=== PATIENT | male | born 1950 | race Caucasian/White ===

== ENCOUNTER 2024-11-04 12:03 | Inpatient (IN) | payer MEDICARE, OTHER, SELFPAY ==
[2024-11-04] VITALS (15 sets, daily range): BP systolic 101–123; BP diastolic 60–83; PULSE 86–140; RESP 16–24; TEMP 36.4–36.8; O2SAT 90–97; BMI 30.7
--- NOTE | ~2024-11-04 | XR_ITS ---
XR chest 2V Ordering provider: Josh Cook MD History: 74 years Male with . sob, cough . Comparison: May 27, 2016 FINDINGS: MEDIASTINUM: The cardiac silhouette is not enlarged. LUNGS: No infiltrates, effusions or pneumothorax. Calcified granuloma in the right lower lobe. Underlying emphysematous/fibrotic changes. OTHER: No free air under the diaphragm. Degenerative changes of the spine. IMPRESSION: No acute cardiopulmonary pathology. Reviewed, dictated and finalized at location [facility]
--- NOTE | ~2024-11-04 | CT_ITS ---
CTA chest PE protocol Ordering provider: Bubba Krueger MD History: 74 years Male with . sob . Comparison: None. Technique: CT angiogram chest was performed following timed intravenous injection of contrast. Thin s lice axial images and reformatted coronal images were obtained. Three dimensional reformatted images of the chest were also obtained using a [employer] workstation. . Automated exposure control and iterati ve reconstruction technique were employed. The dose-length product was 839.66 mGy-cm. 200 mL Omnipaqu e 350 was given IV. Findings: PULMONARY ARTERIES: No pulmonary embolus. VISUALIZED THORACIC INLET: Normal. MEDIASTINUM: Aorta/coronary arteries: Mild atheromatous disease. Heart/other: The heart is not enlarged. Lymph nodes: No mediastinal or hilar adenopathy. LUNGS: No pulmonary nodules or masses. No infiltrates or effusions. No pneumothorax. Granuloma in the right middle lobe. bronchiectatic changes are seen in the lung bases. Dependent Atelectatic changes in the lung bases. VISUALIZED UPPER ABDOMEN: Hypodensity in the liver most likely a cyst measuring 2 cm. Cholelithiasis. Bilateral renal cysts with the largest measures 8.5 cm in the right kidney. Left adrenal adenoma anel suring1.7 cm.Dynamic study or MRI is advised.Sliding hiatus hernia.Otherwise, the visualized upper ab domen is normal. MUSCULOSKELETAL: Soft tissues: The superficial soft tissues are normal. Bones: Age appropriate degenerative changes of the spine. IMPRESSION: 1. No pulmonary embolism 2. Cholelithiasis. 3. Bronchiectatic changes in the lung bases with dependent atelectatic changes. 4. Bilateral renal cysts. 5. Small cyst in the liver. 6. Left adrenal adenoma. Clinical correlation and if warranted dynamic rib or MRI is advised. Reviewed, dictated and finalized at location A. [employer] IMPRESSION: 1. No pulmonary embolism 2. Cholelithiasis. 3. Bronchiectatic changes in the lung bases with dependent atelectatic changes . 4. Bilateral renal cysts. 5. Small cyst in the liver. 6. Left adrenal adenoma. Clinical correlation and if warranted dynamic rib or MRI is advised.
--- NOTE | 2024-11-04 12:05 | ECG_ITS ---
Test Date: 2024-11-04 12:10:25 Measurements Intervals Brice Rate: 136 P: 67 NE: 132 QRS: 78 QRSD: 121 T: 42 QT: 311 QTc: 469 Interpretive Statements SINUS TACHYCARDIA RIGHT BUNDLE BRANCH BLOCK [120+ ms QRS DURATION, UPRIGHT V1, 40+ ms S IN I/aVL/V4/V5/V6] No previous ECG available for comparison Electronically Signed On 11-04-2024 14:35:39 ENGRAVING PATTERNMAKER by Sharmin Guerrero M.D.
[2024-11-04 12:23] LABS: Basophils Percent Auto 0.3 % (0.2-1.2); Eosinophils Absolute Auto 0.2 K/mm3 (0-0.3); Eosinophils Percent Auto 1.7 % (0-4.4); Hematocrit 46.2 % (42.0-52.0); Hemoglobin 15.2 g/dL (14.0-18.0); Immature Granulocyte Absolute 0.02 K/mm3 (0.00-0.031); Immature Granulocyte Percent A 0.2 % (0-0.5); Lymphocytes Absolute Auto 1.62 K/mm3 (0.9-3.2); Lymphocytes Percent Auto 14.9 % (18.3-44.2); Mean Corpuscular HGB Conc 32.9 g/dl (32-36); Mean Corpuscular Hemoglobin 30.2 pg (26-34); Mean Corpuscular Volume 91.8 fl (80-100); Mean Platelet Volume 8.6 fl (7.4-10.4); Monocytes Absolute Auto 0.9 K/mm3 (0.1-0.6); Monocytes Percent Auto 8.1 % (2.6-8.5); Neutrophils Absolute Auto 8.1 K/mm3 (1.3-6.7); Neutrophils Percent Auto 74.8 % (45.5-73.1); Platelet Count Result 240 k/mm3 (150-375); Red Blood Count 5.03 M/mm3 (4.6-6.20); Red Cell Distribution Width 12.7 % (11.5-14.5); White Blood Count 10.9 K/mm3 (4.5-10.0)
[2024-11-04 12:38] LABS: Alanine Aminotransferase 35 U/L (6-50); Albumin Level 3.9 g/dL (3.5-5.1); Alkaline Phosphatase 48 U/L (38-126); Anion Gap 9 mmol/L (4-12); Aspartate Amino Transferase 28 U/L (17-59); Blood Urea Nitrogen 15 mg/dL (9-20); Calcium 9.5 mg/dL (8.4-10.2); Carbon Dioxide 25 mmol/L (22-30); Chloride 108 mmol/L (98-107); Estimated CRCL calculation 60 ml/min; Estimated Glomerular Filt Rate > 60; Glucose 111 mg/dL (65-110); Potassium 3.9 mmol/L (3.4-5.0); Sodium 142 mmol/L (137-145)
[2024-11-04] MEDS: ALBUTEROL SULFATE NEB 2.5 MG/3 ML INH 5 MG INHALATION (13:17)
[2024-11-04] MEDS: IPRATROPIUM BR 0.02% INH SOLN 0.5 MG/2.5 ML VIAL INHALATION ×2 (13:18→20:35)
[2024-11-04] MEDS: methylPREDNISolone SOD SUCC 125 MG VIAL IV PUSH (13:20)
[2024-11-04] MEDS: ACETAMINOPHEN 325 MG TABLET 650 MG PO (13:56)
--- NOTE | 2024-11-04 15:07 | ED.SOB ---
HPI - SOB/Dyspnea General Chief Complaint: Shortness of Breath/Dyspnea Stated Complaint: FLU positive, sob Time Seen by Provider: 11/04/24 12:53 Source: patient Mode of arrival: EMS Limitations: no limitations History of Present Illness HPI Narrative: 74-year-old with a history of COPD not on home oxygen presents to the ER via ambulance with the complaints of shortness of breath which is been ongoing for past 1 week. Patient states that even with minimal ambulation he gets extremely short winded. He denies any chest pain. No previous history of CAD or CHF. He states that he follows at the [facility]. And he has unable to go to [facility] he has not seen a school psychology specialist in the recent past. He has occasional cough which is nonproductive. He was recently diagnosed with influenza. His SpO2 on room air is 88% MD elicited complaint: shortness of breath and cough Pertinent past history: COPD Context: recent illness Timing: constant Severity: moderate Exacerbating factors: exertion Relieving factors: oxygen Known history of: COPD Associated symptoms: denies other symptoms Related Data Home oxygen amount: none Allergies Allergy/AdvReac Type Severity Reaction Status Date / Time No Known Allergies Allergy Unverified 05/27/16 12:43 Review of Systems Review of Systems: All systems reviewed & are unremarkable except as noted in HPI and below Constitutional: Constitutional: Reports no additional constitutional complaints Eyes: Eyes: Reports no additional eye complaints ENT: Reports system reviewed and no additional complaints, except as documented Cardiovascular: Cardiovascular: Reports no additional cardiovascular complaints Respiratory: Respiratory: Reports as per HPI Gastrointestinal: Gastrointestinal: Reports no additional gastrointestinal complaints Musculoskeletal: Musculoskeletal: Reports no additional musculoskeletal complaints PMFSH Past Medical History Medical History COPD (chronic obstructive pulmonary disease) Exam Narrative: GENERAL: Well-appearing, well-nourished, and in no acute distress. HEAD: Normocephalic, atraumatic. EYES: PERRLA and EOMI. ENT: Nares clear, no rhinorrhea or epistaxis. Mucous membranes moist. NECK: Supple. CHEST: Decreased air entry and mild wheeze HEART: Regular rate and rhythm. No murmur heard. Normal peripheral pulses. ABDOMEN: Soft, nontender, nondistended, normal active bowel sounds. EXTREMITIES: Normal range of motion. No edema. SKIN: Warm, dry, no rash. NEURO: No focal deficits. Alert and oriented x3. PSYCH: Normal mood and affect. Course Course Emergency Course: Patient comfortably sitting on the bed in no discomfort his SpO2 on room air was 88% with 2 L it is up to 94%. Did inform him about his lab work, chest x-ray findings with with admission. Discussed with the hospitalist accepted the patient Patient has been tachycardic since he has arrived. The cause of his tachycardia is and on however I did CT a of the chest which did not show evidence of PE I did give 10 mg of diltiazem which brought his heart rate down from 146-125. Will admit him to a tele bed Vital Signs Vital signs: Vital Signs Temperature 36.4 C 11/04/24 12:04 Pulse Rate 140 H 11/04/24 12:04 Respiratory Rate 20 11/04/24 12:04 Blood Pressure 115/70 11/04/24 12:04 Pulse Oximetry 90 11/04/24 12:04 Oxygen Delivery Room Air 11/04/24 12:04 Temperature 36.8 C 11/04/24 13:02 Pulse Rate 129 H 11/04/24 16:56 Respiratory Rate 19 11/04/24 16:56 Blood Pressure 109/60 11/04/24 16:56 Pulse Oximetry 93 11/04/24 16:56 Oxygen Delivery Nasal Cannula 11/04/24 12:56 Oxygen Flow Rate 1 11/04/24 12:56 MDM - SOB/Dyspnea Differential Diagnosis Differential diagnosis: Likely acute exacerbation of chronic obstructive airways disease and community acquired pneumonia Medical Records Attestation: I reviewed the patient's medical records. Lab Data Attestation: I reviewed the patient's lab results. 11/04/24 12:14 11/04/24 12:14 Labs: Lab Results 11/04/24 11/04/24 Range/Units 12:14 16:59 WBC 10.9 H (4.5-10.0) K/mm3 RBC 5.03 (4.6-6.20) M/mm3 Hgb 15.2 (14.0-18.0) g/dL Hct 46.2 (42.0-52.0) % MCV 91.8 (80-100) fl MCH 30.2 (26-34) pg MCHC 32.9 (32-36) g/dl RDW 12.7 (11.5-14.5) % Plt Count 240 (150-375) k/mm3 MPV 8.6 (7.4-10.4) fl Immature Gran % (Auto) 0.2 (0-0.5) % Neut % (Auto) 74.8 H (45.5-73.1) % Lymph % (Auto) 14.9 L (18.3-44.2) % [place] % (Auto) 8.1 (2.6-8.5) % Eos % (Auto) 1.7 (0-4.4) % Baso % (Auto) 0.3 (0.2-1.2) % Lymph # (Auto) 1.62 (0.9-3.2) K/mm3 [place] # (Auto) 0.9 H (0.1-0.6) K/mm3 Eos # (Auto) 0.2 (0-0.3) K/mm3 Baso # (Auto) 0.0 (0.0-0.1) K/mm3 Abs Immat Gran (auto) 0.02 (0.00-0.031) K/mm3 Absolute Neuts (auto) 8.1 H (1.3-6.7) K/mm3 Absolute Nucleated RBC 0.000 (0.0-0.012) K/mm3 Nucleated RBC % 0.0 (0.0-0.2) % Sodium 142 (137-145) mmol/L Potassium 3.9 (3.4-5.0) mmol/L Chloride 108 H (98-107) mmol/L Carbon Dioxide 25 (22-30) mmol/L Anion Gap 9 (4-12) mmol/L BUN 15 (9-20) mg/dL Creatinine 0.89 (0.7-1.3) mg/dL Estim Creat Clear Calc 60 ml/min Estimated GFR > 60 (59 - ) Glucose 111 H (65-110) mg/dL Lactic Acid 1.8 (0.7-2.0) mmol/L Calcium 9.5 (8.4-10.2) mg/dL Total Bilirubin 1.0 (0.2-1.3) mg/dL AST 28 (17-59) U/L ALT 35 (6-50) U/L Alkaline Phosphatase 48 (38-126) U/L Total Protein 7.0 (6.3-8.2) g/dL Albumin 3.9 (3.5-5.1) g/dL Imaging Data Radiologist's impression: ITS Impressions Chest X-Ray 11/04/24 12:30 IMPRESSION: No acute cardiopulmonary pathology. Chest CTA 11/04/24 16:12 IMPRESSION: 1. No pulmonary embolism 2. Cholelithiasis. 3. Bronchiectatic changes in the lung bases with dependent atelectatic changes. 4. Bilateral renal cysts. 5. Small cyst in the liver. 6. Left adrenal adenoma. Clinical correlation and if warranted dynamic rib or MRI is advised. ITS Impressions Chest X-Ray 11/04/24 12:30 IMPRESSION: No acute cardiopulmonary pathology. ECG Data EKG #1: ECG completion date: 11/04/24 ECG completion time: 12:10 EKG Interpretation: tachycardia (136), no ST changes, RBBB, NL axis and no acute changes Discharge Plan Discharge Clinical Impression: COPD exacerbation, Hypoxemia, Sinus tachycardia Patient Disposition: Still a Patient Condition: Stable Patient Language: Kinyarwanda Follow-up/Referrals: PHYSICIAN NOT ON STAFF,NONSTAFF [Primary Care Provider] - Time of Disposition: 15:08
[2024-11-04] MEDS: LACTATED RINGERS 1,000 ML 999 ML IV CONT ×3 (15:10→17:02)
--- NOTE | 2024-11-04 16:01 | PC.NURSE ---
Pt to CT scan via stretcher at this time.
--- NOTE | 2024-11-04 16:50 | PM.IMHP ---
H&P: HPI History of Present Illness Date/Time: 11/04/24 16:50 Chief Complaint: Shortness of Breath Narrative: 74 y/o M presents here with shortness of breath with PMH of COPD. The patient presents here with shortness of breath from home via EMS. The patient reports acute onset of shortness of breath approximately 1 week ago. He was diagnosed with influenza on 10/27/2024. Reports he has been short of breath since this diagnosis. Patient also has a history of COPD. He has a chronic cough at baseline that is productive. He reports no other associated symptoms. Denies fever, chills, body aches, palpitations or chest pain. Initial VS at presentation: 97.6? F, HR 140, RR 20, 115/70, and 90% on RA. ED workup showed: WBC 10.9, no anemia, no significant electrolyte derangements, creatinine 0.89 and GFR >60. CXR showed no acute cardiopulmonary pathology. Chest CTA showed no PE, cholelithiasis, bronchiectatic changes in the lung bases, bilateral renal cysts, small cyst in the liver, and a left adrenal adenoma. Review of Systems Review of Systems: All systems reviewed & are unremarkable except as noted in HPI and below PMFSH Past Medical History Medical History (Updated 11/04/24 @ 22:51 by Gabi Faulkner APRN) Neuropathy HTN (hypertension) COPD (chronic obstructive pulmonary disease) Meds Home Medications and Allergies Home Medications ?Medication ?Instructions ?Recorded ?Confirmed ?Type amlodipine 5 mg tablet 5 mg PO DAILY 11/04/24 11/04/24 History gabapentin 800 mg tablet 800 mg PO HS 11/04/24 11/04/24 History melatonin 5 mg capsule 5 mg PO HS 11/04/24 11/04/24 History omeprazole 40 mg capsule,delayed 40 mg PO DAILY 11/04/24 11/04/24 History release Allergies Allergy/AdvReac Type Severity Reaction Status Date / Time No Known Allergies Allergy Unverified 05/27/16 12:43 Vital Signs Vital Signs - 24 hr 11/04/24 12:04 11/04/24 12:54 11/04/24 12:56 Temperature 97.6 F Pulse Rate 140 H Respiratory Rate 20 Blood Pressure 115/70 Pulse Oximetry 90 90 Oxygen Delivery Room Air Nasal Cannula Nasal Cannula Oxygen Flow Rate 1 1 11/04/24 13:02 11/04/24 13:18 11/04/24 13:28 Temperature 98.3 F Pulse Rate 86 124 H 132 H Respiratory Rate 16 18 18 Blood Pressure 101/83 Pulse Oximetry 96 Oxygen Delivery Oxygen Flow Rate 11/04/24 15:10 Temperature Pulse Rate 138 H Respiratory Rate 18 Blood Pressure 113/65 Pulse Oximetry 94 Oxygen Delivery Oxygen Flow Rate Exam Const: General: comfortable and no acute distress Other: , male, elderly, nontoxic appearance HENMT: Face/Nose/Sinus: Normal nares present Mouth: Yes moist mucous membranes Eyes: General: appearance normal, both eyes and all related structures Sclera: sclerae normal Pupils: Equal, round and reactive pupils present EOM: EOMs intact bilaterally Resp: Other: Bibasilar crackles. Diminished in upper lobes. Mild conversational dyspnea. Supplemental O2 place. Cardio: Rate: tachycardic Rhythm: regular rhythm Other: S1-S2 present without murmur, rub, ectopy Skin: General skin exam: normal color and no rashes or lesions noted Wounds: no wounds Neuro: Speech: normal speech Motor exam (neuro): 5/5 motor strength present throughout Sensory Exam: normal sensation Other: A&O x4 Extrem: General: normal to inspection Psych: Mental Status: mental status grossly normal Affect: normal affect Other: Good insight and judgment, pleasant H&P: Results Labs Labs: Short CBC 11/04/24 Range/Units 12:14 WBC 10.9 H (4.5-10.0) K/mm3 Hgb 15.2 (14.0-18.0) g/dL Hct 46.2 (42.0-52.0) % Plt Count 240 (150-375) k/mm3 BMP 11/04/24 12:14 Sodium 142 Potassium 3.9 Chloride 108 H Carbon Dioxide 25 BUN 15 Creatinine 0.89 Glucose 111 H Calcium 9.5 Liver Function 11/04/24 Range/Units 12:14 Total Bilirubin 1.0 (0.2-1.3) mg/dL AST 28 (17-59) U/L ALT 35 (6-50) U/L Alkaline Phosphatase 48 (38-126) U/L Albumin 3.9 (3.5-5.1) g/dL Assessment and Plan Assessment and plan (1) Sepsis: Qualifiers: Acute respiratory failure type: with hypoxia Sepsis acute organ dysfunction status: with acute organ dysfunction Sepsis type: sepsis due to unspecified organism Severe sepsis acute organ dysfunction type: acute respiratory failure Severe sepsis shock status: without septic shock Qualified Code(s): A41.9 - Sepsis, unspecified organism; R65.20 - Severe sepsis without septic shock; J96.01 - Acute respiratory failure with hypoxia Code(s): A41.9 - Sepsis, unspecified organism Status: Acute Assessment and Plan: - meets SIRS criteria: HR, RR - lactic acid 1.8 - 30 mL/kg = 2580, bolus ordered - suspected source: Influenza/respiratory - started on ceftriaxone and azithromycin - blood cultures drawn on 11/04 - UA added (2) COPD exacerbation: Code(s): J44.1 - Chronic obstructive pulmonary disease with (acute) exacerbation Status: Acute Assessment and Plan: - CXR: No acute cardiopulmonary pathology. - chest CTA: 1. No pulmonary embolism 2. Cholelithiasis. 3. Bronchiectatic changes in the lung bases with dependent atelectatic changes. 4. Bilateral renal cysts. 5. Small cyst in the liver. 6. Left adrenal adenoma. Clinical correlation and if warranted dynamic rib or MRI is advised. - supportive care: Mucinex p.r.n. Tessalon Perles p.r.n. Antipyretic p.r.n. - scheduled nebs - Levalbuterol/Atrovent - prednisone 40 mg p.o. daily x5 days - started on ceftriaxone and azithromycin on 11/04 - currently requiring supplemental O2 - 1-2L NC, no previous requirement Plan Patient remains significantly tachycardic, he reports his heart rate is normally high. Takes metoprolol once daily in the morning, clear on dose. Will give 1 time dose of 5 mg IVP of metoprolol for heart rate, currently 126. Diet: Heart healthy GI Prophylaxis: Not currently indicated DVT Prophylaxis: SCDs Lines: Peripheral Code Status: Full code Quality VTE Prophylaxis VTE prophylaxis: mechanical ordered Hospitalist MIPS Advance Care Plan I have confirmed that the patient's Advanced Care Plan is present, code status is documented, or surrogate decision maker is listed in patient medical record.: Yes Medication Reconciliation I have utilized all available resources to obtain, update and review the patients current medications (includes all prescriptions, OTC, herbals, cannabis, and nutritional supplements).: Yes
[2024-11-04] MEDS: dilTIAZem HCl INJ 25 MG/5 ML VIAL 10 MG IV PUSH (16:53)
[2024-11-04 17:23] LABS: Lactic Acid Reflex 1.8 mmol/L (0.7-2.0)
--- NOTE | 2024-11-04 17:23 | PC.NURSE ---
gave pt snack before dinner
[2024-11-04] MEDS: guaiFENesin 12 HR 600 MG TABCR PO (17:30)
[2024-11-04] MEDS: AZITHROMYCIN 500 MG/NS 250 ML 500 MG/250 ML BAG 250 MG IVPB (18:11)
[2024-11-04] MEDS: DOXYCYCLINE 100 MG/NS 100 ML 100 MG/100 ML BAG IVPB (18:45)
[2024-11-04] MEDS: LACTATED RINGERS 600 ML 999 ML IV CONT (19:08)
[2024-11-04] MEDS: LEVALBUTEROL NEB 1.25 MG/3 ML 0.63 MG INHALATION (20:35)
[2024-11-04] MEDS: methylPREDNISolone SOD SUCC 125 MG VIAL 60 MG IV PUSH (21:11)
[2024-11-04] MEDS: SODIUM CHLORIDE 0.9% IV 500 ML 999 ML IV CONT (21:11)
[2024-11-04] MEDS: SODIUM CHLORIDE 0.9% IV 1,000 ML 125 ML IV CONT (22:20)
[2024-11-04] MEDS: METOPROLOL TARTRATE INJ 5 MG/5 ML VIAL IV PUSH (22:52)
--- NOTE | 2024-11-04 23:12 | ADMGEN ---
This patient, Pb Tripp, was admitted to Medical Room 242-. Patient/family oriented to hospital policies and general routines including ID bracelet, bed and alarms, visiting hours, pain management, procedures, bathroom and other care routines, personal items, smoking policy, room service/diet, and visiting hours. Information on how to activate the Rapid Response Team has been discussed. Patient/Family are encouraged to report perceived risks to care and to ask questions if they do not understand what they are told or what they should do.
[2024-11-04] MEDS: GABAPENTIN 400 MG CAPSULE 800 MG PO (23:47)
[2024-11-04] MEDS: MELATONIN 5 MG TABLET PO (23:48)
[2024-11-05] VITALS (15 sets, daily range): BP systolic 112–143; BP diastolic 62–75; PULSE 53–124; RESP 16–22; TEMP 36.2–36.8; O2SAT 95–97
--- NOTE | 2024-11-05 05:29 | PCRCNOTE ---
Patient stated when he got to his room from ED that he did not want to be awakened for his 0200 updraft treatment. Treatment to resume @ 0800.
[2024-11-05 05:56] LABS: Basophils Percent Auto 0.1 % (0.2-1.2); Hematocrit 38.5 % (42.0-52.0); Hemoglobin 12.3 g/dL (14.0-18.0); Immature Granulocyte Absolute 0.09 K/mm3 (0.00-0.031); Immature Granulocyte Percent A 0.7 % (0-0.5); Lymphocytes Absolute Auto 0.72 K/mm3 (0.9-3.2); Lymphocytes Percent Auto 5.2 % (18.3-44.2); Mean Corpuscular HGB Conc 31.9 g/dl (32-36); Mean Corpuscular Hemoglobin 29.9 pg (26-34); Mean Corpuscular Volume 93.4 fl (80-100); Mean Platelet Volume 9.2 fl (7.4-10.4); Monocytes Absolute Auto 0.3 K/mm3 (0.1-0.6); Neutrophils Absolute Auto 12.6 K/mm3 (1.3-6.7); Platelet Count Result 215 k/mm3 (150-375); Red Blood Count 4.12 M/mm3 (4.6-6.20); Red Cell Distribution Width 12.8 % (11.5-14.5); White Blood Count 13.7 K/mm3 (4.5-10.0)
[2024-11-05 06:13] LABS: Anion Gap 4 mmol/L (4-12); Blood Urea Nitrogen 16 mg/dL (9-20); Carbon Dioxide 26 mmol/L (22-30); Chloride 111 mmol/L (98-107); Estimated CRCL calculation 62 ml/min; Estimated Glomerular Filt Rate > 60; Glucose 163 mg/dL (65-110); Potassium 4.2 mmol/L (3.4-5.0); Sodium 141 mmol/L (137-145)
--- NOTE | 2024-11-05 08:26 | P.PNIM_ITS ---
Progress Note: A&P Assessment and Plan (1) Acute respiratory failure with hypoxia: Code(s): J96.01 - Acute respiratory failure with hypoxia Status: Acute Assessment and Plan: patient presented to the emergency department with acute respiratory failure with hypoxia secondary to COPD exacerbation patient reported recently had influenza on 10/26/2024 * Bronchodilators. * Chest CTA no PE and Bronchiectatic changes in the lung bases with dependent atelectatic changes. * incentive spirometry while awake. * steroids initiated 40mg PO daily * azithromycin 500mg daily PO/ Rocephin IV * mucolytic * supplemental oxygen therapy to maintain oxygen 92% wean as tolerated * Keep BMI less than 25. * Evaluation from home O2 if saturation less than 88% on room air. (2) COPD exacerbation: Code(s): J44.1 - Chronic obstructive pulmonary disease with (acute) exacerbation Status: Acute Assessment and Plan: SEE ABOVE #1 (3) Sinus tachycardia: Code(s): R00.0 - Tachycardia, unspecified Status: Acute Assessment and Plan: patient with sinus tachycardia POA in the 130s was given 1 dose metoprolol 5 mg IV push current heart rate is 53 patient normally takes metoprolol 12.5 b.i.d. * cardiac monitoring * resume patient's metoprolol * likely secondary to patient's COPD exacerbation and hypoxia (4) HTN (hypertension): Code(s): I10 - Essential (primary) hypertension Status: Acute Assessment and Plan: * Resumed amlodipine and metoprolol * monitor BP per unit protocol * adjust hypertensive medications if needed Plan Code status: Full code per patient DVT prophylaxis: SCD Stress ulcer prophylaxis: Protonix 40 daily PT/OT notes: Ambulatory Disposition: Patient continues admission to the medical unit for acute respiratory failure with hypoxia secondary to COPD exacerbation will continue to wean oxygen as tolerated may need home O2 walk study prior to discharge. Patient is ambulatory and plan will be to discharge to home when medically stable. Time Spent With Patient Time with patient: 15 - 25 minutes Subjective Date/time seen: 11/05/24 08:26 Interval history: Patient is a 74-year-old male who was admitted for acute respiratory failure with hypoxia secondary to COPD exacerbation in sinus tachycardia. 11/05/2024: Assumed care Patient still SOB with productive cough requiring 3L NC. Denies CP N/V fever or chills. Has refused DuoNebs had follow-up education and the need patient agreeable at this time. Review of Systems Review of Systems: All systems reviewed & are unremarkable except as noted in HPI and below Exam Narrative: * GENERAL: Alert and oriented x 3. No acute distress. * EYES: EOMI. No scleral icterus. PERRLA. * HEENT: Moist mucous membranes. * LUNGS: Diminished wheezing L>R auscultation bilaterally. Use accessory muscle use. and productive cough * CARDIOVASCULAR: sinus tachycardia. No murmur. No JVD. S1-S2 * ABDOMEN: Soft, non tenderness and non-distended. No palpable masses. * EXTREMITIES: No edema. Non-tender * SKIN: No rashes or lesions. Skin warm, dry. * NEUROLOGIC: No focal neurological deficits. CN II-XII grossly intact * PSYCHIATRIC: Appropriate mood and affect. Good judgement and insight. Objective Data Vital Signs Vital Signs: Vital Signs - 24 hr 11/04/24 12:04 11/04/24 12:54 11/04/24 12:56 Temperature 97.6 F Pulse Rate 140 H Respiratory Rate 20 Blood Pressure 115/70 Pulse Oximetry 90 90 Oxygen Delivery Room Air Nasal Cannula Nasal Cannula Oxygen Flow Rate 1 1 11/04/24 13:02 11/04/24 13:18 11/04/24 13:28 Temperature 98.3 F Pulse Rate 86 124 H 132 H Respiratory Rate 16 18 18 Blood Pressure 101/83 Pulse Oximetry 96 Oxygen Delivery Oxygen Flow Rate 11/04/24 15:10 11/04/24 16:56 11/04/24 19:39 Temperature Pulse Rate 138 H 129 H 120 H Respiratory Rate 18 19 20 Blood Pressure 113/65 109/60 121/71 Pulse Oximetry 94 93 96 Oxygen Delivery Oxygen Flow Rate 11/04/24 20:34 11/04/24 20:45 11/04/24 22:42 Temperature Pulse Rate 117 H 120 H Respiratory Rate 16 16 Blood Pressure Pulse Oximetry 94 Oxygen Delivery Nasal Cannula Oxygen Flow Rate 4 11/04/24 22:48 11/04/24 22:52 11/04/24 23:15 Temperature 98.1 F Pulse Rate 129 H 126 H 112 H Respiratory Rate 24 H 20 Blood Pressure 117/64 123/66 Pulse Oximetry 94 97 Oxygen Delivery Oxygen Flow Rate 11/04/24 23:35 11/05/24 00:05 11/05/24 00:44 Temperature Pulse Rate 115 H 121 H Respiratory Rate Blood Pressure Pulse Oximetry 97 Oxygen Delivery Nasal Cannula Oxygen Flow Rate 4 11/05/24 04:00 11/05/24 04:00 11/05/24 07:56 Temperature 97.4 F L 97.4 F L Pulse Rate 115 H 100 53 L Respiratory Rate 20 18 Blood Pressure 112/70 143/75 H Pulse Oximetry 95 96 Oxygen Delivery Oxygen Flow Rate Intake/Output Intake/Output: Intake & Output 11/02/24 11/03/24 11/04/24 11/05/24 23:59 23:59 23:59 23:59 Intake Total 4500 200 Balance 4500 200 Meds/Results Medications: Active Medications Generic Name Dose Route Start Last Admin Trade Name Freq PRN Reason Stop Dose Admin Acetaminophen 650 mg 11/04/24 17:51 Acetaminophen 325 Mg Tablet PO Q4H PRN Mild Pain (1-3) or Fever Amlodipine Besylate 5 mg 11/05/24 09:00 Amlodipine Besylate 5 Mg Tablet PO DAILY [facility] Azithromycin 500 mg 11/05/24 09:00 Azithromycin 250 Mg Tablet PO DAILY [facility] Benzonatate 100 mg 11/04/24 17:00 Benzonatate 100 Mg Capsule PO TID PRN Cough Gabapentin 400 mg 11/05/24 09:00 Gabapentin 400 Mg Capsule PO TID [facility] Guaifenesin 600 mg 11/04/24 18:00 11/04/24 17:30 Guaifenesin 12 Hr 600 Mg Tabcr PO 600 mg Q12H PRN Administration Congestion Ceftriaxone Sodium 1 gm in 50 mls @ 100 mls/hr 11/04/24 17:00 11/04/24 18:21 Rocephin 1 Gm/Ns 50 Ml IVPB Infused Q24H [facility] Infusion Ipratropium [place] 0.5 mg 11/04/24 20:00 11/05/24 05:00 Ipratropium Br 0.02% Inh Soln 0.5 Mg/2.5 Ml Vial INHALATION Not Given Q6HRT [facility] Levalbuterol HCl 0.63 mg 11/04/24 20:00 11/05/24 05:00 Levalbuterol Neb 1.25 Mg/3 Ml INHALATION Not Given Q6HRT [facility] Melatonin 5 mg 11/04/24 22:55 11/04/24 23:48 Melatonin 5 Mg Tablet PO 5 mg HS [facility] Administration Metoprolol Tartrate 12.5 mg 11/05/24 09:00 Metoprolol Tartrate 12.5 Mg Tablet PO Q12HR [facility] Ondansetron HCl 4 mg 11/04/24 17:51 Ondansetron Inj 4 Mg/2 Ml Vial IV PUSH Q4H PRN Nausea Pantoprazole Sodium 40 mg 11/05/24 09:00 Pantoprazole 40 Mg Tablet PO QAM [facility] Prednisone 40 mg 11/05/24 08:00 Prednisone 20 Mg Tablet PO 11/09/24 08:01 DAILY@0800 [facility] Radiology Results: ITS Impressions Chest X-Ray 11/04/24 12:30 IMPRESSION: No acute cardiopulmonary pathology. Chest CTA 11/04/24 16:12 IMPRESSION: 1. No pulmonary embolism 2. Cholelithiasis. 3. Bronchiectatic changes in the lung bases with dependent atelectatic changes. 4. Bilateral renal cysts. 5. Small cyst in the liver. 6. Left adrenal adenoma. Clinical correlation and if warranted dynamic rib or MRI is advised. Labs Labs: Laboratory Results - last 24 hr 11/04/24 11/04/24 11/05/24 12:14 16:59 04:48 WBC 10.9 H 13.7 H RBC 5.03 4.12 L Hgb 15.2 12.3 L Hct 46.2 38.5 L MCV 91.8 93.4 MCH 30.2 29.9 MCHC 32.9 31.9 L RDW 12.7 12.8 Plt Count 240 215 MPV 8.6 9.2 Immature Gran % (Auto) 0.2 0.7 H Neut % (Auto) 74.8 H 92.0 H Lymph % (Auto) 14.9 L 5.2 L [place] % (Auto) 8.1 2.0 L Eos % (Auto) 1.7 0.0 Baso % (Auto) 0.3 0.1 L Lymph # (Auto) 1.62 0.72 L [place] # (Auto) 0.9 H 0.3 Eos # (Auto) 0.2 0.0 Baso # (Auto) 0.0 0.0 Abs Immat Gran (auto) 0.02 0.09 H Absolute Neuts (auto) 8.1 H 12.6 H Absolute Nucleated RBC 0.000 0.000 Nucleated RBC % 0.0 0.0 Sodium 142 141 Potassium 3.9 4.2 Chloride 108 H 111 H Carbon Dioxide 25 26 Anion Gap 9 4 BUN 15 16 Creatinine 0.89 0.98 Estim Creat Clear Calc 60 62 Estimated GFR > 60 > 60 Glucose 111 H 163 H Lactic Acid 1.8 Calcium 9.5 9.0 Total Bilirubin 1.0 AST 28 ALT 35 Alkaline Phosphatase 48 Total Protein 7.0 Albumin 3.9
[2024-11-05] MEDS: predniSONE 20 MG TABLET 40 MG PO (09:04)
[2024-11-05] MEDS: GABAPENTIN 400 MG CAPSULE PO ×3 (09:05→17:18)
[2024-11-05] MEDS: PANTOPRAZOLE 40 MG TABLET PO (09:05)
[2024-11-05] MEDS: AZITHROMYCIN 250 MG TABLET 500 MG PO (09:05)
[2024-11-05] MEDS: amLODIPine BESYLATE 5 MG TABLET PO (09:05)
[2024-11-05] MEDS: METOPROLOL TARTRATE 12.5 MG TABLET PO ×2 (13:34→21:17)
--- NOTE | 2024-11-05 14:43 | PCRCNOTE ---
CALLED PROVIDER TO LET HER KNOW PATIENT HAS REFUSED LAST 3 BREATHING TREATMENTS. PROVIDER WILL GO TALK TO PATIENT.
[2024-11-05 15:58] LABS: Add Urine Microscopic? YES; Appearance Urine Clear (Clear); Bacteria Urine None Seen /hpf; Bilirubin Urine Negative (Negative); Blood Urine Negative (Negative); Color Urine Yellow (Yellow); Glucose Urine UA Negative (Negative); Ketones Urine Trace mg/dL (Negative); Leukocyte Esterase Ur Negative LEU/UL (Negative); Nitrate Urine Negative (Negative); Non Pathogenic Casts 0-2; Protein Urine 1+ mg/dL (Negative); RBC Urine 0-2 /hpf (0-2); Squamous Epithelial Cell Urine None Seen /hpf (Few); WBC Urine 0-5 /hpf (0-3); pH Urine 6.5 (5.0-9.0)
[2024-11-05] MEDS: LEVALBUTEROL NEB 1.25 MG/3 ML 0.63 MG INHALATION (20:37)
[2024-11-05] MEDS: IPRATROPIUM BR 0.02% INH SOLN 0.5 MG/2.5 ML VIAL INHALATION (20:38)
[2024-11-05] MEDS: MELATONIN 5 MG TABLET PO (21:16)
[2024-11-06] VITALS (19 sets, daily range): BP systolic 101–117; BP diastolic 50–67; PULSE 91–113; RESP 16–20; TEMP 36.2–37; O2SAT 93–99
[2024-11-06 05:53] LABS: Hematocrit 38.6 % (42.0-52.0); Hemoglobin 12.1 g/dL (14.0-18.0); Mean Corpuscular HGB Conc 31.3 g/dl (32-36); Mean Corpuscular Hemoglobin 29.5 pg (26-34); Mean Corpuscular Volume 94.1 fl (80-100); Mean Platelet Volume 9.4 fl (7.4-10.4); Platelet Count Result 251 k/mm3 (150-375); White Blood Count 15.7 K/mm3 (4.5-10.0)
[2024-11-06 06:09] LABS: Alanine Aminotransferase 30 U/L (6-50); Albumin Level 3.2 g/dL (3.5-5.1); Alkaline Phosphatase 35 U/L (38-126); Anion Gap 6 mmol/L (4-12); Aspartate Amino Transferase 31 U/L (17-59); Bilirubin,Total 0.5 mg/dL (0.2-1.3); Blood Urea Nitrogen 18 mg/dL (9-20); Calcium 9.1 mg/dL (8.4-10.2); Carbon Dioxide 27 mmol/L (22-30); Chloride 108 mmol/L (98-107); Estimated CRCL calculation 67 ml/min; Estimated Glomerular Filt Rate > 60; Glucose 118 mg/dL (65-110); Potassium 4.2 mmol/L (3.4-5.0); Sodium 141 mmol/L (137-145)
[2024-11-06] MEDS: IPRATROPIUM BR 0.02% INH SOLN 0.5 MG/2.5 ML VIAL INHALATION ×3 (07:44→21:35)
[2024-11-06] MEDS: LEVALBUTEROL NEB 1.25 MG/3 ML 0.63 MG INHALATION ×3 (07:44→21:35)
[2024-11-06] MEDS: METOPROLOL TARTRATE 12.5 MG TABLET PO (08:43)
[2024-11-06] MEDS: AZITHROMYCIN 250 MG TABLET 500 MG PO (08:44)
[2024-11-06] MEDS: PANTOPRAZOLE 40 MG TABLET PO (08:44)
[2024-11-06] MEDS: GABAPENTIN 400 MG CAPSULE PO ×3 (08:44→17:26)
[2024-11-06] MEDS: predniSONE 20 MG TABLET 40 MG PO (08:44)
[2024-11-06] MEDS: guaiFENesin 12 HR 600 MG TABCR PO (12:42)
[2024-11-06] MEDS: BENZONATATE 100 MG CAPSULE PO ×2 (12:42→17:26)
--- NOTE | 2024-11-06 14:26 | P.PNIM_ITS ---
Progress Note: A&P Assessment and Plan (1) Acute respiratory failure with hypoxia: Code(s): J96.01 - Acute respiratory failure with hypoxia Status: Acute Assessment and Plan: patient presented to the emergency department with acute respiratory failure with hypoxia secondary to COPD exacerbation patient reported recently had influenza on 10/26/2024 * Bronchodilators. * Chest CTA no PE and Bronchiectatic changes in the lung bases with dependent atelectatic changes. * incentive spirometry while awake. * steroids initiated 40mg PO daily * azithromycin 500mg daily PO/ Rocephin IV * mucolytic * supplemental oxygen therapy to maintain oxygen 92% wean as tolerated currently at 4 L * Evaluation from home O2 if saturation less than 88% on room air. * Encourage smoking cessation * home oxygen studies scheduled for 11/07 (2) COPD exacerbation: Code(s): J44.1 - Chronic obstructive pulmonary disease with (acute) exacerbation Status: Acute Assessment and Plan: SEE ABOVE #1 (3) Sinus tachycardia: Code(s): R00.0 - Tachycardia, unspecified Status: Acute Assessment and Plan: patient with sinus tachycardia POA in the 130s was given 1 dose metoprolol 5 mg IV push current heart rate is 53 patient normally takes metoprolol 12.5 b.i.d. * cardiac monitoring * resume patient's metoprolol * likely secondary to patient's COPD exacerbation and hypoxia 11/06/2024 * Increased Metoprolol to 25mg BID HR still in the low 100's (4) HTN (hypertension): Code(s): I10 - Essential (primary) hypertension Status: Acute Assessment and Plan: * Resumed amlodipine and metoprolol * monitor BP per unit protocol * adjust hypertensive medications if needed Plan Code status: Full code per patient DVT prophylaxis: SCD Stress ulcer prophylaxis: Protonix 40 daily PT/OT notes: Ambulatory Disposition: Patient continues admission to the medical unit for acute respiratory failure with hypoxia secondary to COPD exacerbation will continue to wean oxygen as tolerated home O2 walk study scheduled for tomorrow prior to discharge. Patient is ambulatory and plan will be to discharge to home when medically stable. Time Spent With Patient Time with patient: 15 - 25 minutes Subjective Date/time seen: 11/06/24 14:26 Interval history: Patient is a 74-year-old male who was admitted for acute respiratory failure with hypoxia secondary to COPD exacerbation in sinus tachycardia. 11/06/2024: Assumed care Patient still SOB with productive cough requiring 4L NC. Denies CP N/V fever or chills. Still reporting phlegm worse after breathing treatment explained this is expected reinforced the need and to Continued use incentive. plan home oxygen walk Review of Systems Review of Systems: All systems reviewed & are unremarkable except as noted in HPI and below Exam Narrative: * GENERAL: Alert and oriented x 3. No acute distress. * EYES: EOMI. No scleral icterus. PERRLA. * HEENT: Moist mucous membranes. * LUNGS: Diminished wheezing L>R auscultation bilaterally. Use accessory muscle use. and productive cough * CARDIOVASCULAR: sinus tachycardia. No murmur. No JVD. S1-S2 * ABDOMEN: Soft, non tenderness and non-distended. No palpable masses. * EXTREMITIES: No edema. Non-tender * SKIN: No rashes or lesions. Skin warm, dry. * NEUROLOGIC: No focal neurological deficits. CN II-XII grossly intact * PSYCHIATRIC: Appropriate mood and affect. Good judgement and insight. Objective Data Vital Signs Vital Signs: Vital Signs - 24 hr 11/05/24 16:00 11/05/24 16:00 11/05/24 20:00 Temperature 97.5 F L Pulse Rate 107 H 114 H Respiratory Rate 18 Blood Pressure 112/62 Pulse Oximetry 96 97 Oxygen Delivery Nasal Cannula Oxygen Flow Rate 4 11/05/24 20:00 11/05/24 20:00 11/05/24 20:38 Temperature 98.3 F Pulse Rate 103 H 110 H 106 H Respiratory Rate 18 16 Blood Pressure 125/71 Pulse Oximetry 97 Oxygen Delivery Oxygen Flow Rate 11/05/24 20:41 11/05/24 20:51 11/05/24 21:17 Temperature Pulse Rate 98 118 H Respiratory Rate 16 Blood Pressure Pulse Oximetry 97 Oxygen Delivery Nasal Cannula Oxygen Flow Rate 4 11/06/24 00:00 11/06/24 00:00 11/06/24 04:00 Temperature 97.7 F Pulse Rate 91 92 91 Respiratory Rate 20 Blood Pressure 101/63 Pulse Oximetry 98 Oxygen Delivery Oxygen Flow Rate 11/06/24 04:00 11/06/24 07:44 11/06/24 07:44 Temperature 97.6 F Pulse Rate 98 92 Respiratory Rate 20 16 Blood Pressure 106/64 Pulse Oximetry 99 94 Oxygen Delivery Nasal Cannula Oxygen Flow Rate 4 11/06/24 08:00 11/06/24 08:03 11/06/24 08:11 Temperature 97.8 F Pulse Rate 110 H 101 H 107 H Respiratory Rate 16 16 Blood Pressure 112/50 L Pulse Oximetry 95 Oxygen Delivery Oxygen Flow Rate 11/06/24 08:43 11/06/24 08:45 11/06/24 12:00 Temperature Pulse Rate 113 H 92 Respiratory Rate Blood Pressure Pulse Oximetry 96 Oxygen Delivery Nasal Cannula Oxygen Flow Rate 4 11/06/24 12:15 11/06/24 14:13 Temperature 97.1 F L Pulse Rate 109 H 102 H Respiratory Rate 17 16 Blood Pressure 117/67 Pulse Oximetry 94 Oxygen Delivery Oxygen Flow Rate Intake/Output Intake/Output: Intake & Output 11/03/24 11/04/24 11/05/24 11/06/24 23:59 23:59 23:59 23:59 Intake Total 4500 800 860 Balance 4500 800 860 Meds/Results Medications: Active Medications Generic Name Dose Route Start Last Admin Trade Name [place] PRN Reason Stop Dose Admin Acetaminophen 650 mg 11/04/24 17:51 Acetaminophen 325 Mg Tablet PO Q4H PRN Mild Pain (1-3) or Fever Amlodipine Besylate 5 mg 11/05/24 09:00 11/06/24 08:44 Amlodipine Besylate 5 Mg Tablet PO Not Given DAILY [facility] Azithromycin 500 mg 11/05/24 09:00 11/06/24 08:44 Azithromycin 250 Mg Tablet PO 500 mg DAILY [facility] Administration Benzonatate 100 mg 11/04/24 17:00 11/06/24 12:42 Benzonatate 100 Mg Capsule PO 100 mg TID PRN Administration Cough Gabapentin 400 mg 11/05/24 09:00 11/06/24 12:42 Gabapentin 400 Mg Capsule PO 400 mg TID [facility] Administration Guaifenesin 600 mg 11/04/24 18:00 11/06/24 12:42 Guaifenesin 12 Hr 600 Mg Tabcr PO 600 mg Q12H PRN Administration Congestion Ceftriaxone Sodium 1 gm in 50 mls @ 100 mls/hr 11/04/24 17:00 11/05/24 17:18 Rocephin 1 Gm/Ns 50 Ml IVPB 100 mls/hr Q24H [facility] Administration Ipratropium [place] 0.5 mg 11/04/24 20:00 11/06/24 14:13 Ipratropium Br 0.02% Inh Soln 0.5 Mg/2.5 Ml Vial INHALATION 0.5 mg Q6HRT [facility] Administration Levalbuterol HCl 0.63 mg 11/04/24 20:00 11/06/24 14:13 Levalbuterol Neb 1.25 Mg/3 Ml INHALATION 0.63 mg Q6HRT [facility] Administration Melatonin 5 mg 11/04/24 22:55 11/05/24 21:16 Melatonin 5 Mg Tablet PO 5 mg HS [facility] Administration Metoprolol Tartrate 12.5 mg 11/05/24 09:00 11/06/24 08:43 Metoprolol Tartrate 12.5 Mg Tablet PO 12.5 mg Q12HR [facility] Administration Ondansetron HCl 4 mg 11/04/24 17:51 Ondansetron Inj 4 Mg/2 Ml Vial IV PUSH Q4H PRN Nausea Pantoprazole Sodium 40 mg 11/05/24 09:00 11/06/24 08:44 Pantoprazole 40 Mg Tablet PO 40 mg QAM [facility] Administration Prednisone 40 mg 11/05/24 08:00 11/06/24 08:44 Prednisone 20 Mg Tablet PO 11/09/24 08:01 40 mg DAILY@0800 [facility] Administration Radiology Results: ITS Impressions Chest X-Ray 11/04/24 12:30 IMPRESSION: No acute cardiopulmonary pathology. Chest CTA 11/04/24 16:12 IMPRESSION: 1. No pulmonary embolism 2. Cholelithiasis. 3. Bronchiectatic changes in the lung bases with dependent atelectatic changes. 4. Bilateral renal cysts. 5. Small cyst in the liver. 6. Left adrenal adenoma. Clinical correlation and if warranted dynamic rib or MRI is advised. Labs Labs: Laboratory Results - last 24 hr 11/04/24 11/06/24 15:48 05:19 WBC 15.7 H RBC 4.10 L Hgb 12.1 L Hct 38.6 L MCV 94.1 MCH 29.5 MCHC 31.3 L RDW 13.0 Plt Count 251 MPV 9.4 Sodium 141 Potassium 4.2 Chloride 108 H Carbon Dioxide 27 Anion Gap 6 BUN 18 Creatinine 0.91 Estim Creat Clear Calc 67 Estimated GFR > 60 Glucose 118 H Calcium 9.1 Total Bilirubin 0.5 AST 31 ALT 30 Alkaline Phosphatase 35 L Total Protein 6.0 L Albumin 3.2 L Urine Color Yellow Urine Appearance Clear Urine pH 6.5 Ur Specific [place] 1.030 Urine Protein 1+ H Urine Glucose (UA) Negative Urine Ketones Trace H Ur Blood (Man) Negative Urine Nitrate Negative Urine Bilirubin Negative Urine Urobilinogen 1.0 Leukocyte Esterase Rfl Negative Urine RBC 0-2 Urine WBC 0-5 Ur Squamous Epith Cells None seen Urine Bacteria None seen Urine Casts 0-2 Quality VTE Prophylaxis VTE prophylaxis: mechanical ordered -Patient's previous records reviewed on admission -ER notes reviewed in detail on admission -discussed all findings and current treatment plan with patient/Family/POA -Consultations reviewed for recommendations -Patient's disposition for safe discharge discussed with briefcase sewer Dictation performed by [employer] direct speech recognition software, therefore front desk receptionist variants and typographical errors may occur. Hospitalist MIPS Advance Care Plan I have confirmed that the patient's Advanced Care Plan is present, code status is documented, or surrogate decision maker is listed in patient medical record.: Yes Medication Reconciliation I have utilized all available resources to obtain, update and review the patients current medications (includes all prescriptions, OTC, herbals, cannabis, and nutritional supplements).: Yes The patient is not eligible for med reconciliation; the patient is in a emergent medical situation where delaying treatment would jeopardize the patients health.: No
[2024-11-06] MEDS: MELATONIN 5 MG TABLET PO (21:07)
[2024-11-06] MEDS: METOPROLOL TARTRATE 25 MG TABLET PO (21:07)
[2024-11-07] VITALS (19 sets, daily range): BP systolic 104–131; BP diastolic 62–71; PULSE 78–135; RESP 16–20; TEMP 36.3–36.9; O2SAT 84–96
[2024-11-07 05:45] LABS: Hematocrit 35.7 % (42.0-52.0); Hemoglobin 11.2 g/dL (14.0-18.0); Mean Corpuscular HGB Conc 31.4 g/dl (32-36); Mean Corpuscular Hemoglobin 29.9 pg (26-34); Mean Corpuscular Volume 95.5 fl (80-100); Mean Platelet Volume 9.6 fl (7.4-10.4); Platelet Count Result 223 k/mm3 (150-375); Red Blood Count 3.74 M/mm3 (4.6-6.20); Red Cell Distribution Width 12.8 % (11.5-14.5); White Blood Count 10.7 K/mm3 (4.5-10.0)
[2024-11-07 05:51] LABS: Alanine Aminotransferase 27 U/L (6-50); Albumin Level 2.8 g/dL (3.5-5.1); Alkaline Phosphatase 38 U/L (38-126); Anion Gap 2 mmol/L (4-12); Aspartate Amino Transferase 23 U/L (17-59); Bilirubin,Total 0.5 mg/dL (0.2-1.3); Blood Urea Nitrogen 18 mg/dL (9-20); Calcium 8.8 mg/dL (8.4-10.2); Carbon Dioxide 30 mmol/L (22-30); Chloride 107 mmol/L (98-107); Estimated CRCL calculation 67 ml/min; Estimated Glomerular Filt Rate > 60; Glucose 100 mg/dL (65-110); Potassium 3.9 mmol/L (3.4-5.0); Sodium 139 mmol/L (137-145)
[2024-11-07] MEDS: amLODIPine BESYLATE 5 MG TABLET PO (08:33)
[2024-11-07] MEDS: predniSONE 20 MG TABLET 40 MG PO (08:34)
[2024-11-07] MEDS: PANTOPRAZOLE 40 MG TABLET PO (08:34)
[2024-11-07] MEDS: METOPROLOL TARTRATE 25 MG TABLET PO ×2 (08:34→20:17)
[2024-11-07] MEDS: GABAPENTIN 400 MG CAPSULE PO ×3 (08:34→18:46)
[2024-11-07] MEDS: AZITHROMYCIN 250 MG TABLET 500 MG PO (08:34)
[2024-11-07] MEDS: LEVALBUTEROL NEB 1.25 MG/3 ML 0.63 MG INHALATION ×3 (09:10→20:39)
[2024-11-07] MEDS: IPRATROPIUM BR 0.02% INH SOLN 0.5 MG/2.5 ML VIAL INHALATION ×3 (09:11→20:39)
--- NOTE | 2024-11-07 09:22 | P.PNIM_ITS ---
Progress Note: A&P Assessment and Plan (1) Acute respiratory failure with hypoxia: Code(s): J96.01 - Acute respiratory failure with hypoxia Status: Acute Assessment and Plan: patient presented to the emergency department with acute respiratory failure with hypoxia secondary to COPD exacerbation patient reported recently had influenza on 10/26/2024 * Bronchodilators. * Chest CTA no PE and Bronchiectatic changes in the lung bases with dependent atelectatic changes. * incentive spirometry while awake. * steroids initiated 40mg PO daily * azithromycin 500mg daily PO/ Rocephin IV * mucolytic * supplemental oxygen therapy to maintain oxygen 92% wean as tolerated currently at 4 L * Evaluation from home O2 if saturation less than 88% on room air. * Encourage smoking cessation * home oxygen studies scheduled for 11/07 (2) COPD exacerbation: Code(s): J44.1 - Chronic obstructive pulmonary disease with (acute) exacerbation Status: Acute Assessment and Plan: SEE ABOVE #1 (3) Sinus tachycardia: Code(s): R00.0 - Tachycardia, unspecified Status: Acute Assessment and Plan: patient with sinus tachycardia POA in the 130s was given 1 dose metoprolol 5 mg IV push current heart rate is 53 patient normally takes metoprolol 12.5 b.i.d. * cardiac monitoring * resume patient's metoprolol * likely secondary to patient's COPD exacerbation and hypoxia 11/06/2024 * Increased Metoprolol to 25mg BID HR still in the low 100's (4) HTN (hypertension): Code(s): I10 - Essential (primary) hypertension Status: Acute Assessment and Plan: * Resumed amlodipine and metoprolol * monitor BP per unit protocol * adjust hypertensive medications if needed Plan Code status: Full code per patient DVT prophylaxis: SCD Stress ulcer prophylaxis: Protonix 40 daily PT/OT notes: Ambulatory Disposition: Patient continues admission to the medical unit for acute respiratory failure with hypoxia secondary to COPD exacerbation will continue to wean oxygen as tolerated home O2 walk study scheduled for tomorrow prior to discharge. Patient is ambulatory and plan will be to discharge to home when medically stable. Subjective Date/time seen: 11/07/24 09:22 Review of Systems Review of Systems: All systems reviewed & are unremarkable except as noted in HPI and below Objective Data Vital Signs Vital Signs: Vital Signs - 24 hr 11/06/24 12:00 11/06/24 12:15 11/06/24 14:13 Temperature 97.1 F L Pulse Rate 92 109 H 102 H Respiratory Rate 17 16 Blood Pressure 117/67 Pulse Oximetry 94 Oxygen Delivery Oxygen Flow Rate 11/06/24 14:27 11/06/24 16:00 11/06/24 16:23 Temperature 98.2 F Pulse Rate 108 H 109 H 110 H Respiratory Rate 16 17 Blood Pressure 105/56 L Pulse Oximetry 93 Oxygen Delivery Oxygen Flow Rate 11/06/24 20:00 11/06/24 20:00 11/06/24 20:00 Temperature 98.6 F Pulse Rate 95 105 H Respiratory Rate 20 Blood Pressure 105/51 L Pulse Oximetry 93 96 Oxygen Delivery Nasal Cannula Oxygen Flow Rate 4 11/06/24 21:07 11/06/24 21:35 11/06/24 21:35 Temperature Pulse Rate 99 108 H Respiratory Rate 20 Blood Pressure Pulse Oximetry 93 Oxygen Delivery Nasal Cannula Oxygen Flow Rate 4 11/06/24 21:44 11/06/24 23:53 11/07/24 00:00 Temperature 98.2 F Pulse Rate 107 H 92 92 Respiratory Rate 20 20 Blood Pressure 102/60 Pulse Oximetry 95 Oxygen Delivery Oxygen Flow Rate 11/07/24 04:00 11/07/24 04:00 11/07/24 08:00 Temperature 97.7 F 97.3 F L Pulse Rate 82 92 94 Respiratory Rate 20 18 Blood Pressure 115/68 131/71 Pulse Oximetry 95 94 Oxygen Delivery Oxygen Flow Rate 11/07/24 08:34 11/07/24 09:11 Temperature Pulse Rate 94 94 Respiratory Rate 20 Blood Pressure Pulse Oximetry Oxygen Delivery Oxygen Flow Rate Intake/Output Intake/Output: Intake & Output 11/04/24 11/05/24 11/06/24 11/07/24 23:59 23:59 23:59 23:59 Intake Total 4500 850 2250 840 Balance 4500 850 2250 840 Meds/Results Medications: Active Medications Generic Name Dose Route Start Last Admin Trade Name Freq PRN Reason Stop Dose Admin Acetaminophen 650 mg 11/04/24 17:51 Acetaminophen 325 Mg Tablet PO Q4H PRN Mild Pain (1-3) or Fever Amlodipine Besylate 5 mg 11/05/24 09:00 11/07/24 08:33 Amlodipine Besylate 5 Mg Tablet PO 5 mg DAILY [facility] Administration Amoxicillin/Clavulanate Potassium 1 tablet 11/07/24 09:00 Amoxicillin/Clavulanate K 875-125 Mg Tab PO Q12HR [facility] Azithromycin 500 mg 11/05/24 09:00 11/07/24 08:34 Azithromycin 250 Mg Tablet PO 500 mg DAILY [facility] Administration Benzonatate 100 mg 11/04/24 17:00 11/06/24 17:26 Benzonatate 100 Mg Capsule PO 100 mg TID PRN Administration Cough Gabapentin 400 mg 11/05/24 09:00 11/07/24 08:34 Gabapentin 400 Mg Capsule PO 400 mg TID [facility] Administration Guaifenesin 600 mg 11/04/24 18:00 11/06/24 12:42 Guaifenesin 12 Hr 600 Mg Tabcr PO 600 mg Q12H PRN Administration Congestion Ipratropium [place] 0.5 mg 11/04/24 20:00 11/07/24 09:11 Ipratropium Br 0.02% Inh Soln 0.5 Mg/2.5 Ml Vial INHALATION 0.5 mg Q6HRT [facility] Administration Levalbuterol HCl 0.63 mg 11/04/24 20:00 11/07/24 09:10 Levalbuterol Neb 1.25 Mg/3 Ml INHALATION 0.63 mg Q6HRT [facility] Administration Melatonin 5 mg 11/04/24 22:55 11/06/24 21:07 Melatonin 5 Mg Tablet PO 5 mg HS [facility] Administration Metoprolol Tartrate 25 mg 11/06/24 21:00 11/07/24 08:34 Metoprolol Tartrate 25 Mg Tablet PO 25 mg Q12HR [facility] Administration Ondansetron HCl 4 mg 11/04/24 17:51 Ondansetron Inj 4 Mg/2 Ml Vial IV PUSH Q4H PRN Nausea Pantoprazole Sodium 40 mg 11/05/24 09:00 11/07/24 08:34 Pantoprazole 40 Mg Tablet PO 40 mg QAM [facility] Administration Prednisone 40 mg 11/05/24 08:00 11/07/24 08:34 Prednisone 20 Mg Tablet PO 11/09/24 08:01 40 mg DAILY@0800 [facility] Administration Radiology Results: ITS Impressions Chest X-Ray 11/04/24 12:30 IMPRESSION: No acute cardiopulmonary pathology. Chest CTA 11/04/24 16:12 IMPRESSION: 1. No pulmonary embolism 2. Cholelithiasis. 3. Bronchiectatic changes in the lung bases with dependent atelectatic changes. 4. Bilateral renal cysts. 5. Small cyst in the liver. 6. Left adrenal adenoma. Clinical correlation and if warranted dynamic rib or MRI is advised. Labs Labs: Laboratory Results - last 24 hr 11/07/24 04:09 WBC 10.7 H RBC 3.74 L Hgb 11.2 L Hct 35.7 L MCV 95.5 MCH 29.9 MCHC 31.4 L RDW 12.8 Plt Count 223 MPV 9.6 Sodium 139 Potassium 3.9 Chloride 107 Carbon Dioxide 30 Anion Gap 2 L BUN 18 Creatinine 0.90 Estim Creat Clear Calc 67 Estimated GFR > 60 Glucose 100 Calcium 8.8 Total Bilirubin 0.5 AST 23 ALT 27 Alkaline Phosphatase 38 Total Protein 5.0 L Albumin 2.8 L Quality VTE Prophylaxis VTE prophylaxis: mechanical ordered
[2024-11-07] MEDS: AMOXICILLIN/CLAVULANATE K 875-125 MG TAB 1 TABLET PO ×2 (11:41→20:17)
[2024-11-07] MEDS: BENZONATATE 100 MG CAPSULE PO (12:27)
[2024-11-07] MEDS: guaiFENesin 12 HR 600 MG TABCR PO (12:27)
--- NOTE | 2024-11-07 13:44 | P.DS_ITS ---
DS: Admitting Diagnosis Discharge Date 11/08/24 Admitting Diagnosis sepsis COPD exacerbation DS: Summary Hospital Course Reason for hospitalization: sepsis COPD exacerbation Hospital Course: Patient is a 74-year-old male who was admitted for acute respiratory failure with hypoxia secondary to COPD exacerbation in sinus tachycardia. Workup in the hospital included a chest x-ray which was negative. A chest CTA which was negative for PE, showed bronchiectatic changes in the lung bases, bilateral renal cyst, small cyst in the liver, left adrenal adenoma, cholelithiasis. His initial labs showed a white blood cell count of 10.9. A UA was obtained which showed 1+ urine protein, trace ketone, otherwise negative. Blood cultures were obtained currently showing no growth to date on preliminary read, day 4. he received steroids, antibiotics, DuoNeb breathing treatments while inpatient. He also had a home O2 eval and was set up with home oxygen. Patient is feeling much better today and requesting to go home. He is stable for discharge at this time. He will need to follow up with his primary care doctor in 1 week. final diagnosis: sepsis, COPD exacerbation, acute bronchitis Status at Discharge Cognitive/behavioral status at discharge: alert oriented x4 Functional status at discharge: independent ambulation Overall status at discharge: patient is progressing back to baseline Time Spent with Patient Time attestation: Total time spent providing and/or coordinating discharge services: Time spent: Greater than 30 minutes Exam Narrative: General: In no acute distress, well nourished Cardiac: Normal S1 and S2. No murmur, gallops or friction rubs, peripheral pulses intact. Respiratory: rhonchi noted bilaterally, expiratory wheeze left greater than right, Tight productive cough, no other adventitious lung sounds, currently on 2 L nasal cannula, no acute respiratory distress visualized, no use accessory muscles to breathe. Gastrointestinal: soft, non-distended, non-tender, normoactive bowel sounds. Neuro: Alert and oriented x4 DS: Data Data Completed and Pending Completed studies during hospitalization: chest x-ray Chest CTA Pending studies at discharge: Blood cultures Labs on day of discharge: Labs from last 24 hours 11/07/24 04:09 WBC 10.7 H RBC 3.74 L Hgb 11.2 L Hct 35.7 L MCV 95.5 MCH 29.9 MCHC 31.4 L RDW 12.8 Plt Count 223 MPV 9.6 Sodium 139 Potassium 3.9 Chloride 107 Carbon Dioxide 30 Anion Gap 2 L BUN 18 Creatinine 0.90 Estim Creat Clear Calc 67 Estimated GFR > 60 Glucose 100 Calcium 8.8 Total Bilirubin 0.5 AST 23 ALT 27 Alkaline Phosphatase 38 Total Protein 5.0 L Albumin 2.8 L Preliminary micro results at discharge 11/04/24 15:37 Blood Culture - Preliminary Blood 11/04/24 16:00 Blood Culture - Preliminary Blood Procedures/Treatments: NOne Discharge Plan Discharge Attending physician on discharge: Kareem Brewster Discharging Clinician: Alivia Workman Anticipated Discharge Date/Time: 11/08/24 10:56 Patient Disposition: Home, Self-Care Activity: as tolerated Diet: as tolerated and heart healthy Discharge Instructions: * Finish all your antibiotic as directed even if you are feeling better * Finish all of your steroid * Follow up with primary care doctor in 1 week. Talk with your doctor about referral to report analyst so you can get pulmonary function test done. * You have been prescribed an albuterol rescue inhaler. Use this as needed for your shortness of breath or wheezing. Do not overuse this medication. If you are not getting relief after 2 doses, take a nebulized treatment. IF you are still not getting relief with breathing treatment at home, you may repeat x1. If no relief after 2 breathing treatments you need to come back to the hospital for further evaluation and treatment. A nebulizer, accessories, and Duonebs were sent to your pharmacy. * If you do not have a pulse oximetry reader at home, it might be ho to get one to keep track of your oxygen level. You need to maintain a saturation of at least 92%. You can find these at your pharmacy or online. * Talk with your primary care doctor about getting a concentrator instead of tanks at home for your oxygen needs. Patient Instructions: Antibiotic Form, Using Oxygen at Home (DC), COPD (Chronic Obstructive Pulmonary Disease) (DC), Pulse Oximetry (DC) Patient Language: Yoruba Stand Alone Forms: General Discharge Information Follow-up/Referrals: PHYSICIAN NOT ON STAFF,NONSTAFF [Primary Care Provider] - 1 Week Discharge Medications: New azithromycin [Zithromax] 250 mg Tablet 500 mg PO DAILY Qty: 2 0RF prednisone 20 mg Tablet 40 mg PO DAILY@0800 Qty: 2 0RF benzonatate 100 mg Capsule 100 mg PO TID PRN (Reason: Cough) Qty: 30 0RF guaifenesin [Mucus Relief ER] 600 mg Tablet Extended Release 12hr 600 mg PO Q12H PRN (Reason: Congestion) Qty: 20 0RF amoxicillin-pot clavulanate 875-125 mg tablet 1 tablet PO Q12H Qty: 8 0RF albuterol sulfate [Ventolin HFA] 90 mcg/actuation HFA aerosol inhaler 2 inh inhalation QID PRN (Reason: shortness of breath or wheezing) Qty: 8.5 0RF (DME) nebulizer and compressor Device See Rx Instructions .Route Qty: 1 0RF Rx Instructions: As directed (DME) nebulizer accessories Kit See Rx Instructions .Route Qty: 1 0RF Rx Instructions: As directed ipratropium-albuterol 0.5 mg-3 mg(2.5 mg base)/3 mL solution for nebulization 3 ml inhalation Q6H PRN (Reason: wheezing) Qty: 90 0RF Continued melatonin 5 mg capsule 5 mg PO HS amlodipine 5 mg tablet 5 mg PO DAILY metoprolol tartrate 25 mg tablet 12.5 mg PO Q12H gabapentin 400 mg capsule 400 mg PO TID omeprazole 20 mg capsule,delayed release(DR/EC) 20 mg PO BID Date of admission: 11/04/24 17:51 Primary Care Provider: PHYSICIAN NOT ON STAFF,NONSTAFF Admitting Provider: Kareem Brewster Attending physician on admission: Alivia Workman Condition: Improved Quality VTE Prophylaxis VTE prophylaxis: pharmacologic ordered Hospitalist MIPS Heart Failure (Exclusion) Patient has history of Heart Transplant or Left Ventricular Assistive Device?: No IF YES, STOP HERE Heart Failure (Qualifier) Patient has current or prior documentation of LVEF less than or equal to 40%, or mod/servere depressed LVSF?: No IF NO, STOP HERE
--- NOTE | 2024-11-07 13:53 | P.PNIM_ITS ---
Progress Note: A&P Assessment and Plan (1) Acute respiratory failure with hypoxia: Code(s): J96.01 - Acute respiratory failure with hypoxia Status: Acute Assessment and Plan: patient presented to the emergency department with acute respiratory failure with hypoxia secondary to COPD exacerbation patient reported recently had influenza on 10/26/2024 * Bronchodilators. * Chest CTA no PE and Bronchiectatic changes in the lung bases with dependent atelectatic changes. * incentive spirometry while awake. * steroids initiated 40mg PO daily * azithromycin 500mg daily PO/ Rocephin IV * mucolytic * supplemental oxygen therapy to maintain oxygen 92% wean as tolerated currently at 4 L * Evaluation from home O2 if saturation less than 88% on room air. * Encourage smoking cessation * home oxygen studies scheduled for 11/07 11/07 * Transitioned to oral Azithromycin and Augmentin * Currently on 2L NC * Will need home O2 test to evaluate for home oxygen * encourage smoking cessation * Continue steroids (2) COPD exacerbation: Code(s): J44.1 - Chronic obstructive pulmonary disease with (acute) exacerbation Status: Acute Assessment and Plan: SEE ABOVE #1 (3) Sinus tachycardia: Code(s): R00.0 - Tachycardia, unspecified Status: Acute Assessment and Plan: patient with sinus tachycardia POA in the 130s was given 1 dose metoprolol 5 mg IV push current heart rate is 53 patient normally takes metoprolol 12.5 b.i.d. * cardiac monitoring * resume patient's metoprolol * likely secondary to patient's COPD exacerbation and hypoxia 11/06/2024 * Increased Metoprolol to 25mg BID HR still in the low 100's 11/07 * No change (4) HTN (hypertension): Code(s): I10 - Essential (primary) hypertension Status: Acute Assessment and Plan: * Resumed amlodipine and metoprolol * monitor BP per unit protocol * adjust hypertensive medications if needed 11/07 * No change (5) Adrenal adenoma: Code(s): D35.00 - Benign neoplasm of unspecified adrenal gland Status: Acute Assessment and Plan: * MRI of the abdomen and pelvis with and without contrast ordered. * Adrenal adenoma was noted on CTA of the chest (6) Liver cyst: Code(s): K76.89 - Other specified diseases of liver Status: Acute Assessment and Plan: * Noted on CTA of chest * Will get MRI to further diagnose (7) Renal cyst: Code(s): N28.1 - Cyst of kidney, acquired Status: Acute Assessment and Plan: * Noted on CTA of the chest * MRI ordered to further evaluate Plan Code status: Full code per patient DVT prophylaxis: SCD Stress ulcer prophylaxis: Protonix 40 daily PT/OT notes: Ambulatory Disposition: Patient continues admission to the medical unit for acute respiratory failure with hypoxia secondary to COPD exacerbation will continue to wean oxygen as tolerated home O2 walk study scheduled for tomorrow prior to discharge. Patient is ambulatory and plan will be to discharge to home when medically stable. Time Spent With Patient Time with patient: 25 - 35 minutes Subjective Date/time seen: 11/07/24 13:53 Interval history: Patient is a 74-year-old male who was admitted for acute respiratory failure with hypoxia secondary to COPD exacerbation in sinus tachycardia. Subjective: Patient denies any fever, chills, nausea, vomiting, diarrhea, abdominal pain, chest pain. He does endorse productive cough and SOB with exertion. Labs and imaging reviewed. Review of Systems Review of Systems: All systems reviewed & are unremarkable except as noted in HPI and below Constitutional: Constitutional: Reports as per HPI and Reports no additional constitutional complaints Eyes: Eyes: Reports as per HPI and Reports no additional eye complaints ENT: Reports system reviewed and no additional complaints, except as documented and Reports as per HPI Cardiovascular: Cardiovascular: Reports as per HPI and Reports no additional cardiovascular complaints Respiratory: Respiratory: Reports as per HPI and Reports no additional respiratory complaints Gastrointestinal: Gastrointestinal: Reports as per HPI and Reports no additional gastrointestinal complaints Genitourinary: Genitourinary: Reports no additional male genitourinary complaints and Reports as per HPI Musculoskeletal: Musculoskeletal: Reports no additional musculoskeletal complaints and Reports as per HPI Integumentary/Breasts: Skin/Breast: Reports system reviewed and no additional complaints, except as docu and Reports as per HPI Neurologic: Reports system reviewed and no additional complaints, except as documented and Reports as per HPI Psychiatric: Psychiatric: Reports no additional psychiatric complaints and Reports as per HPI Exam Narrative: General: In no acute distress, well nourished Head: atraumatic, no encephalopathy Eyes: PERRLA, sclera clear ENT: moist mucous membranes, nasal passages clear Neck: supple, no JVD, no adenopathy, trachea midline Cardiac: Normal S1 and S2. No murmur, gallops or friction rubs, peripheral pulses intact. Respiratory: rhonchi noted bilaterally, expiratory wheeze left greater than right, Tight productive cough, no other adventitious lung sounds, currently on 2 L nasal cannula, no acute respiratory distress visualized, no use accessory muscles to breathe. Gastrointestinal: soft, non-distended, non-tender, normoactive bowel sounds. : voiding without difficulty. Extremities: moves all extremities well, no edema Skin: clean, dry, intact. No wounds or lesions. Neuro: Alert and oriented x4, cranial nerves intact, no neuro deficits. Psych: normal mood, normal affect, interactive Objective Data Vital Signs Vital Signs: Vital Signs - 24 hr 11/06/24 14:13 11/06/24 14:27 11/06/24 16:00 Temperature Pulse Rate 102 H 108 H 109 H Respiratory Rate 16 16 Blood Pressure Pulse Oximetry Oxygen Delivery Oxygen Flow Rate 11/06/24 16:23 11/06/24 20:00 11/06/24 20:00 Temperature 98.2 F Pulse Rate 110 H 95 Respiratory Rate 17 Blood Pressure 105/56 L Pulse Oximetry 93 93 Oxygen Delivery Nasal Cannula Oxygen Flow Rate 4 11/06/24 20:00 11/06/24 21:07 11/06/24 21:35 Temperature 98.6 F Pulse Rate 105 H 99 Respiratory Rate 20 Blood Pressure 105/51 L Pulse Oximetry 96 93 Oxygen Delivery Nasal Cannula Oxygen Flow Rate 4 11/06/24 21:35 11/06/24 21:44 11/06/24 23:53 Temperature 98.2 F Pulse Rate 108 H 107 H 92 Respiratory Rate 20 20 20 Blood Pressure 102/60 Pulse Oximetry 95 Oxygen Delivery Oxygen Flow Rate 11/07/24 00:00 11/07/24 04:00 11/07/24 04:00 Temperature 97.7 F Pulse Rate 92 82 92 Respiratory Rate 20 Blood Pressure 115/68 Pulse Oximetry 95 Oxygen Delivery Oxygen Flow Rate 11/07/24 08:00 11/07/24 08:00 11/07/24 08:00 Temperature 97.3 F L Pulse Rate 94 95 111 H Respiratory Rate 18 20 Blood Pressure 131/71 Pulse Oximetry 94 96 Oxygen Delivery Nasal Cannula Oxygen Flow Rate 2 11/07/24 08:34 11/07/24 09:11 11/07/24 09:28 Temperature Pulse Rate 94 94 95 Respiratory Rate 20 20 Blood Pressure Pulse Oximetry Oxygen Delivery Oxygen Flow Rate 11/07/24 11:45 11/07/24 13:29 11/07/24 13:45 Temperature Pulse Rate 102 H 107 H Respiratory Rate 20 20 Blood Pressure Pulse Oximetry 96 Oxygen Delivery Nasal Cannula Oxygen Flow Rate 2 Intake/Output Intake/Output: Intake & Output 11/04/24 11/05/24 11/06/24 11/07/24 23:59 23:59 23:59 23:59 Intake Total 4500 850 2250 1200 Balance 4500 850 2250 1200 Meds/Results Medications: Active Medications Generic Name Dose Route Start Last Admin Trade Name Freq PRN Reason Stop Dose Admin Acetaminophen 650 mg 11/04/24 17:51 Acetaminophen 325 Mg Tablet PO Q4H PRN Mild Pain (1-3) or Fever Amlodipine Besylate 5 mg 11/05/24 09:00 11/07/24 08:33 Amlodipine Besylate 5 Mg Tablet PO 5 mg DAILY JAYLIN Administration Amoxicillin/Clavulanate Potassium 1 tablet 11/07/24 09:00 11/07/24 11:41 Amoxicillin/Clavulanate K 875-125 Mg Tab PO 1 tablet Q12HR JAYLIN Administration Azithromycin 500 mg 11/05/24 09:00 11/07/24 08:34 Azithromycin 250 Mg Tablet PO 500 mg DAILY JAYLIN Administration Benzonatate 100 mg 11/04/24 17:00 11/07/24 12:27 Benzonatate 100 Mg Capsule PO 100 mg TID PRN Administration Cough Gabapentin 400 mg 11/05/24 09:00 11/07/24 08:34 Gabapentin 400 Mg Capsule PO 400 mg TID [facility] Administration Guaifenesin 600 mg 11/04/24 18:00 11/07/24 12:27 Guaifenesin 12 Hr 600 Mg Tabcr PO 600 mg Q12H PRN Administration Congestion Ipratropium [place] 0.5 mg 11/04/24 20:00 11/07/24 13:29 Ipratropium Br 0.02% Inh Soln 0.5 Mg/2.5 Ml Vial INHALATION 0.5 mg Q6HRT [facility] Administration Levalbuterol HCl 0.63 mg 11/04/24 20:00 11/07/24 13:29 Levalbuterol Neb 1.25 Mg/3 Ml INHALATION 0.63 mg Q6HRT JAYLIN Administration Melatonin 5 mg 11/04/24 22:55 11/06/24 21:07 Melatonin 5 Mg Tablet PO 5 mg HS [facility] Administration Metoprolol Tartrate 25 mg 11/06/24 21:00 11/07/24 08:34 Metoprolol Tartrate 25 Mg Tablet PO 25 mg Q12HR JAYLIN Administration Ondansetron HCl 4 mg 11/04/24 17:51 Ondansetron Inj 4 Mg/2 Ml Vial IV PUSH Q4H PRN Nausea Pantoprazole Sodium 40 mg 11/05/24 09:00 11/07/24 08:34 Pantoprazole 40 Mg Tablet PO 40 mg QAM JAYLIN Administration Prednisone 40 mg 11/05/24 08:00 11/07/24 08:34 Prednisone 20 Mg Tablet PO 11/09/24 08:01 40 mg DAILY@0800 JAYLIN Administration Radiology Results: ITS Impressions Chest X-Ray 11/04/24 12:30 IMPRESSION: No acute cardiopulmonary pathology. Chest CTA 11/04/24 16:12 IMPRESSION: 1. No pulmonary embolism 2. Cholelithiasis. 3. Bronchiectatic changes in the lung bases with dependent atelectatic changes. 4. Bilateral renal cysts. 5. Small cyst in the liver. 6. Left adrenal adenoma. Clinical correlation and if warranted dynamic rib or MRI is advised. Labs Labs: Laboratory Results - last 24 hr 11/07/24 04:09 WBC 10.7 H RBC 3.74 L Hgb 11.2 L Hct 35.7 L MCV 95.5 MCH 29.9 MCHC 31.4 L RDW 12.8 Plt Count 223 MPV 9.6 Sodium 139 Potassium 3.9 Chloride 107 Carbon Dioxide 30 Anion Gap 2 L BUN 18 Creatinine 0.90 Estim Creat Clear Calc 67 Estimated GFR > 60 Glucose 100 Calcium 8.8 Total Bilirubin 0.5 AST 23 ALT 27 Alkaline Phosphatase 38 Total Protein 5.0 L Albumin 2.8 L Quality VTE Prophylaxis VTE prophylaxis: mechanical ordered
[2024-11-07] MEDS: guaiFENesin/DEXTROMETHORPHAN 10 ML UDC PO (14:26)
[2024-11-07] MEDS: MELATONIN 5 MG TABLET PO (20:17)
[2024-11-08] VITALS: BP 120/69; PULSE 93; PULSE 94; RESP 20; TEMP 36.6; O2SAT 95
[2024-11-08 04:00] VITALS: BP 115/63; PULSE 88; PULSE 91; RESP 20; TEMP 36.5; O2SAT 96
[2024-11-08 05:14] LABS: Hematocrit 35.8 % (42.0-52.0); Hemoglobin 11.3 g/dL (14.0-18.0); Mean Corpuscular HGB Conc 31.6 g/dl (32-36); Mean Corpuscular Hemoglobin 29.7 pg (26-34); Mean Corpuscular Volume 94.2 fl (80-100); Mean Platelet Volume 9.4 fl (7.4-10.4); Platelet Count Result 219 k/mm3 (150-375); Red Cell Distribution Width 12.7 % (11.5-14.5); White Blood Count 8.3 K/mm3 (4.5-10.0)
[2024-11-08 05:28] LABS: Alanine Aminotransferase 32 U/L (6-50); Albumin Level 2.8 g/dL (3.5-5.1); Alkaline Phosphatase 43 U/L (38-126); Anion Gap 1 mmol/L (4-12); Aspartate Amino Transferase 22 U/L (17-59); Bilirubin,Total 0.5 mg/dL (0.2-1.3); Blood Urea Nitrogen 14 mg/dL (9-20); Carbon Dioxide 32 mmol/L (22-30); Chloride 107 mmol/L (98-107); Estimated CRCL calculation 64 ml/min; Estimated Glomerular Filt Rate > 60; Glucose 106 mg/dL (65-110); Potassium 3.9 mmol/L (3.4-5.0); Sodium 140 mmol/L (137-145)
[2024-11-08 08:00] VITALS: BP 118/65; PULSE 113; PULSE 92; PULSE 97; RESP 18; RESP 20; TEMP 36.7; O2SAT 93; O2SAT 96
[2024-11-08] MEDS: IPRATROPIUM BR 0.02% INH SOLN 0.5 MG/2.5 ML VIAL INHALATION (08:00)
[2024-11-08] MEDS: LEVALBUTEROL NEB 1.25 MG/3 ML 0.63 MG INHALATION (08:00)
[2024-11-08 08:04] VITALS: PULSE 97; RESP 20; O2SAT 96
[2024-11-08 08:19] VITALS: PULSE 97
[2024-11-08] MEDS: AZITHROMYCIN 250 MG TABLET 500 MG PO (08:19)
[2024-11-08] MEDS: AMOXICILLIN/CLAVULANATE K 875-125 MG TAB 1 TABLET PO (08:19)
[2024-11-08] MEDS: GABAPENTIN 400 MG CAPSULE PO ×2 (08:19→13:22)
[2024-11-08] MEDS: amLODIPine BESYLATE 5 MG TABLET PO (08:19)
[2024-11-08] MEDS: METOPROLOL TARTRATE 25 MG TABLET PO (08:19)
[2024-11-08] MEDS: predniSONE 20 MG TABLET 40 MG PO (08:19)
[2024-11-08] MEDS: PANTOPRAZOLE 40 MG TABLET PO (08:19)
[2024-11-08 12:00] VITALS: BP 117/67; PULSE 118; RESP 18; TEMP 36.3; O2SAT 94
[2024-11-08] MEDS: guaiFENesin 12 HR 600 MG TABCR PO (13:25)
[2024-11-08] MEDS: guaiFENesin/DEXTROMETHORPHAN 10 ML UDC PO (13:25)
[2024-11-08] MEDS: BENZONATATE 100 MG CAPSULE PO (13:25)
== END 2024-11-08 14:50 | disposition home or self-care (01) | DRG 871 ==
LOC: ANHED 15:08 → ANH3MEDSUR 19:02 → ANH2MED 22:30
PROVIDERS: Emergency Medicine; Nurse Practitioner Family; Student in an Organized Health Care Education/Training Program; Admitting Provider General Practice; Emergency Provider Family Medicine; Visit Provider Nurse Practitioner Acute Care
DX: A41.9 Sepsis, unspecified organism (principal); J96.01 Acute respiratory failure with hypoxia; J44.1 Chronic obstructive pulmonary disease with (acute) exacerbation; J44.0 Chronic obstructive pulmonary disease with (acute) lower respiratory infection; J20.9 Acute bronchitis, unspecified; J47.9 Bronchiectasis, uncomplicated; R00.0 Tachycardia, unspecified; D35.00 Benign neoplasm of unspecified adrenal gland; K76.89 Other specified diseases of liver; N28.1 Cyst of kidney, acquired; G62.9 Polyneuropathy, unspecified
CPT/HCPCS: 36415; 71046; 71275; 80048; 80053; 81001; 83605; 85025; 85027; 87040; 93005; 94618; 94640; 96361; 96374; 96375; 99282; A9270; J0456; J0696; J2919; J7030; J7040; J7120; J7512; Q9967